=== PATIENT | male | born 1985 | race Caucasian/White ===

== ENCOUNTER 2022-02-28 10:26 | Emergency (ER) | payer OTHER ==
[~2022-02-28] VITALS: Ht 175.3 cm; Wt 90.7 kg
[2022-02-28 11:30] VITALS: BP 132/94
[2022-02-28] MEDS ORDERED: LIDOCAINE 1%-EPI 1:100,000 20 ML VIAL ONE (13:19)
[2022-02-28] MEDS: LIDOCAINE 1%-EPI 1:100,000 20 ML VIAL TP ONE (13:30)
[2022-02-28] MEDS ORDERED: SULF1TAB48 PO (14:15)
--- NOTE | 2022-02-28 14:19 | NUR ---
I&D DONE BY DR DURANT, PT TOLERATED PROCEDURE WELL. WOUND CARE PROVIDED. D/C W/ PRESCRIPTION IN STABLE CONDITION.
== END 2022-02-28 14:22 | disposition home or self-care (01) ==
LOC: ER 10:40
DX: L02.512 Cutaneous abscess of left hand (principal); Z79.899 Other long term (current) drug therapy
CPT/HCPCS: 99284; 10060; 73080; 76536; A6403; A6407; J3490